=== PATIENT | male | born 1940 | race Caucasian/White ===

== ENCOUNTER 2022-12-16 19:41 | Emergency (ER) | payer OTHER ==
[~2022-12-16] VITALS: Ht 175.3 cm; Wt 72.7 kg
[2022-12-16 22:21] LABS: Basophils # (auto) 0 10 ^3/uL (0-0.2); Eosinophils # (auto) 0.1 10 ^3/uL (0-0.8); Eosinophils % (auto) 0.4 % (0.0-7.0); Monocytes # (auto) 0.9 10 ^3/uL (0-1.3); Neutrophils # (auto) 11.5 10 ^3/uL (1.6-8.6)
[2022-12-16 22:22] LABS: Basophils % (auto) 0.3 % (0.0-2.0); Hematocrit 52.7 % (41.0-53.0); Hemoglobin 16.6 g/dL (13.5-17.5); Lymphocytes # (auto) 1.3 10 ^3/uL (0.4-5.4); Lymphocytes % (auto) 9.2 % (10.0-50.0); Mean Corpuscular Hemoglobin 31.8 pg (28.0-32.0); Mean Corpuscular Hgb Conc. 31.5 g/dL (32.0-36.0); Mean Corpuscular Volume 101.2 fL (80.0-100.0); Monocytes % (auto) 6.6 % (0.0-12.0); Neutrophils % (auto) 83.5 % (37.0-80.0); Red Cell Distribution Width 16.1 % (11.8-14.3); White Blood Cell 13.8 10^3/uL (4.4-10.8)
[2022-12-16 22:34] LABS: INR 1.1 (0.9-1.15); Partial Thromboplastin Time 27.7 sec (24.6-33.4)
[2022-12-16 22:44] LABS: Albumin 3.4 g/dL (3.4-5.0); Anion Gap 14 (5-15); Blood Alcohol < 3.0 mg/dL (0-5); Calcium 9.3 mg/dL (8.5-10.1); Carbon Dioxide 19 mmol/L (21-32); Chloride 129 mmol/L (98-107); Lipase 818 U/L (73-393); Potassium 4.3 mmol/L (3.5-5.1)
[2022-12-16] MEDS ORDERED: cefTRIAXone 1GM/50ML D5W 50 ML IV ONE (22:45)
[2022-12-16] MEDS ORDERED: LACTATED RINGER'S 1,000 ML IV ONE (22:45)
[2022-12-16] MEDS ORDERED: AZITHROMYCIN 500MG/ 250ML 250 ML IV ONE (22:45)
[2022-12-16 22:46] LABS: Alanine Aminotransferase 27 U/L (16-61); Aspartate Aminotransferase 14 U/L (15-37); GFR African American 44 mL/min; GFR Non-African American 37 mL/min; Total Protein 7.7 g/dL (6.4-8.2)
[2022-12-16 22:50] LABS: Blood Urea Nitrogen 83 mg/dL (7-18)
[2022-12-16 22:51] LABS: Sodium 162 mmol/L (136-145)
[2022-12-16 22:54] LABS: BUN/Creatinine Ratio 43.9
[2022-12-16 22:55] LABS: Alkaline Phosphatase 106 U/L (45-117); Glucose 714 mg/dL (74-106)
[2022-12-16] MEDS ORDERED: LACTATED RINGER'S 2,000 ML IV ONE (23:00)
[2022-12-17 00:19] LABS: Alcohol, Urine < 3.0 mg/dL (0-10); Amphetamine Screen, Urine NEGATIVE (NEGATIVE); Barbiturate Scree,Urine NEGATIVE (NEGATIVE); Benzodiazephine Screen, Urine NEGATIVE (NEGATIVE); Cannabinoid Screen, Urine NEGATIVE (NEGATIVE); Cocaine Screen, Urine NEGATIVE (NEGATIVE); Opiate Scree,Urine NEGATIVE (NEGATIVE); Phencyclidine Screen, Urine NEGATIVE (NEGATIVE)
[2022-12-17 00:23] LABS: Urine Bacteria FEW /hpf (None Seen); Urine Blood Negative /uL (Negative); Urine WBC 10 /hpf (0 - 3)
[2022-12-17] MEDS ORDERED: DexAMETHasone SOD PHOS 10MG/1ML VIAL INJ IV ONE (01:15)
[2022-12-17] MEDS ORDERED: dilTIAZem 125mg/125ml BAG KIT 100 ML IV SCH (01:30)
[2022-12-17] MEDS ORDERED: DEXTROSE (50%) 50ML SYRG IV PRN ×2 (02:15→03:15)
[2022-12-17] MEDS ORDERED: InsuLIN REG 1unit/0.01ml Soln (100units/ml) ONE (02:15)
[2022-12-17] MEDS ORDERED: InsuLIN R (HUMAN) 100 UNITS in SODIUM CHL 0.9% 99 ML IV SCH ×2 (02:15→03:15)
[2022-12-17] MEDS ORDERED: ACCU-CHEK COMFORT CURVE STRIP VI SCH (03:00)
[2022-12-17] MEDS: ACCU-CHEK COMFORT CURVE STRIP VI SCH ×6 (04:40→12:05)
[2022-12-17 08:54] LABS: Potassium 3.8 mmol/L (3.5-5.1)
[2022-12-17 08:57] LABS: Calcium 9.8 mg/dL (8.5-10.1)
[2022-12-17] MEDS ORDERED: SODIUM CHLORIDE 0.9% 1,000 ML IV ONE ×2 (09:30)
[2022-12-17 13:29] VITALS: BP 117/73
== END 2022-12-17 13:42 | disposition short-term general hospital (02) ==
LOC: ER 19:41
DX: G93.41 Metabolic encephalopathy (principal); E11.10 Type 2 diabetes mellitus with ketoacidosis without coma; R41.82 Altered mental status, unspecified; R79.89 Other specified abnormal findings of blood chemistry; E87.0 Hyperosmolality and hypernatremia; R39.2 Extrarenal uremia; E86.0 Dehydration; E11.65 Type 2 diabetes mellitus with hyperglycemia; N39.0 Urinary tract infection, site not specified; R91.8 Other nonspecific abnormal finding of lung field; Z20.822 Contact with and (suspected) exposure to COVID-19; Z79.899 Other long term (current) drug therapy; Z79.01 Long term (current) use of anticoagulants
CPT/HCPCS: 36415; 36600; 70450; 71045; 80048; 80053; 80307; 80320; 81001; 82010; 82553; 82805; 82962; 83605; 83690; 83930; 84484; 85025; 85610; 85730; 87426; 87804; 96361; 96365; 96367; 96368; 96375; 99291; J0456; J0696; J1100; J1815; J7030